=== PATIENT | male | born 1965 | race Caucasian/White ===

== ENCOUNTER 2019-02-10 15:12 | Outpatient (CLI) | payer BC ==
[~2019-02-10] VITALS: Ht 175.3 cm; Wt 104.3 kg
== END 2019-02-10 15:30 | disposition home or self-care (01) ==
LOC: OFIC 805 15:12
DX: H93.91 Unspecified disorder of right ear (principal); R09.81 Nasal congestion; H69.90 Unspecified Eustachian tube disorder, unspecified ear